=== PATIENT | male | born 1945 | race Caucasian/White ===

== ENCOUNTER 2016-11-12 10:37 | Day surgery (SDC) | payer MEDICARE, OTHER ==
[~2016-11-12] VITALS: Ht 175.3 cm; Wt 58.6 kg
[~2016-11-12 10:37] MED LIST: ASCO500 IV; THYR81.25 PO
[2016-11-12] MEDS ORDERED: SODIUM CHLORIDE 0.9% 1,000 ML IV ONE ×2 (11:16→11:30)
[2016-11-12] MEDS ORDERED: CeFAZolin 1 GM/DEXTROSE 50 ML IV ONE ×2 (11:36→13:00)
[2016-11-12 11:37] LABS: BASOPHILS % (AUTO) 0.6 % (0.0-2.0); EOSINOPHILS % (AUTO) 6.9 % (1.0-6.0); HEMATOCRIT 40.8 % (41-53); HEMOGLOBIN 13.6 g/dL (13.5-17.5); LYMPHOCYTES # (AUTO) 0.9 K/uL (1.0-4.8); LYMPHOCYTES % (AUTO) 21.6 % (22.0-44.0); MEAN CORPUSCULAR HEMOGLOBIN 33.2 pg (26.0-34.0); MEAN CORPUSCULAR HGB CONC 33.4 G/dL (31.0-37.0); MEAN CORPUSCULAR VOLUME 100 fL (80-100); MONOCYTES # (AUTO) 0.4 K/uL (0.1-1.0); MONOCYTES % (AUTO) 9.8 % (2.0-9.0); NEUTROPHILS # (AUTO) 2.5 K/uL (1.8-7.7); NEUTROPHILS % (AUTO) 61.1 % (40.0-70.0); PLATELET COUNT (AUTO) 167 K/uL (150-450); RED BLOOD CELL COUNT(AUTO) 4.09 MIL/uL (4.50-5.90); RED CELL DISTRIBUTION WIDTH 12.9 % (11.5-14.5); WHITE BLOOD COUNT (AUTO) 4.1 K/uL (4.5-11.0)
[2016-11-12] MEDS ORDERED: LORazepam 2 MG/ML VIAL ONE (11:37)
[2016-11-12 11:52] LABS: CREATININE 1.01 mg/dL (0.60-1.30); GLOMERULAR FILTR. RATE CALC > 60 mL/min (>60); UREA NITROGEN, BLOOD 17 mg/dL (7-18)
[2016-11-12] MEDS ORDERED: LORazepam 2 MG/ML VIAL IVP ONE (13:00)
[2016-11-12] MEDS ORDERED: IODIXANOL 320 MG/ML 150 ML VIAL ONE (17:11)
[2016-11-12] MEDS ORDERED: HEPARIN SODIUM 1000 UNITS/NS 500 ML ONE (17:11)
[2016-11-12] MEDS ORDERED: ALTEPLASE 2 MG/VIAL IVP ONE (17:45)
[2016-11-12] MEDS ORDERED: LIDOCAINE HCL/PF 1% 30 ML VIAL INJ ONE (17:50)
[2016-11-12] MEDS ORDERED: MIDAZOLAM HCL 2 MG/2 ML VIAL IVP ONE ×2 (17:50→18:35)
[2016-11-12] MEDS ORDERED: LIDOCAINE HCL/PF 1% 30 ML VIAL ONE (17:50)
[2016-11-12] MEDS ORDERED: FentaNYL CITRATE-PF 100 MCG/2 ML VIAL IVP ONE ×2 (17:50→18:35)
[2016-11-12] MEDS ORDERED: FentaNYL CITRATE-PF 100 MCG/2 ML VIAL ONE ×2 (17:53→18:44)
[2016-11-12] MEDS ORDERED: MIDAZOLAM HCL 2 MG/2 ML VIAL ONE ×2 (17:53→18:45)
[2016-11-12] MEDS ORDERED: PROMETHAZINE HCL 25 MG TABLET PO ONE (19:00)
[2016-11-12] MEDS ORDERED: HYDROmorphone HCL 2 MG TABLET PO ONE (19:00)
[2017-01-15] MEDS ORDERED: SODIUM CHLORIDE 0.9% 1,000 ML IV ONE (08:12)
[2017-01-15] MEDS ORDERED: LORazepam 2 MG/ML VIAL IVP ONE (08:15)
[2017-01-15] MEDS ORDERED: LORazepam 2 MG/ML VIAL IVP PRN (08:15)
[2017-01-15] MEDS ORDERED: CIPROFLOXACIN 400 MG/D5% WATER 200 ML IV ONE (08:30)
== END 2016-11-12 20:05 | disposition home or self-care (01) ==
LOC: SDS 10:37
PROVIDERS: ATTEND Radiology Diagnostic Radiology
DX: D49.0 Neoplasm of unspecified behavior of digestive system (principal); Z90.49 Acquired absence of other specified parts of digestive tract
CPT/HCPCS: 36245; 36246; 36415; 37243; 75726; 75774; 82565; 84520; 85025; 85610; C1892; J0690; J1644; J2060; J2250; J2997; J3010; J3490; J7030; Q9967

== ENCOUNTER 2017-01-18 05:50 | Day surgery (SDC) | payer MEDICARE, OTHER ==
[~2017-01-18] VITALS: Ht 177.8 cm; Wt 62.7 kg
[2017-01-18] MEDS ORDERED: SODIUM CHLORIDE 0.9% 1,000 ML IV ONE ×3 (06:00→10:30)
[2017-01-18 06:36] LABS: BASOPHILS # (AUTO) 0.03 K/uL (0.00-0.20); BASOPHILS % (AUTO) 0.6 % (0.0-2.0); EOSINOPHILS # (AUTO) 0.35 K/uL (0.00-0.70); EOSINOPHILS % (AUTO) 7.41 % (1.0-6.0); HEMATOCRIT 39.8 % (41-53); HEMOGLOBIN 13.5 g/dL (13.5-17.5); LYMPHOCYTES # (AUTO) 1.1 K/uL (1.0-4.8); LYMPHOCYTES % (AUTO) 23.6 % (22.0-44.0); MEAN CORPUSCULAR HEMOGLOBIN 33.2 pg (26.0-34.0); MEAN CORPUSCULAR VOLUME 98 fL (80-100); MONOCYTES # (AUTO) 0.5 K/uL (0.1-1.0); MONOCYTES % (AUTO) 10.8 % (2.0-9.0); NEUTROPHILS # (AUTO) 2.7 K/uL (1.8-7.7); NEUTROPHILS % (AUTO) 57.5 % (40.0-70.0); RED BLOOD CELL COUNT(AUTO) 4.08 MIL/uL (4.50-5.90); RED CELL DISTRIBUTION WIDTH 13.6 % (11.5-14.5); WHITE BLOOD COUNT (AUTO) 4.7 K/uL (4.5-11.0)
[2017-01-18 06:47] LABS: CALCIUM, TOTAL 9.4 mg/dL (8.8-10.5); CREATININE 1.22 mg/dL (0.60-1.30); POTASSIUM 3.8 mmol/L (3.5-5.1)
[2017-01-18 06:52] LABS: ALBUMIN 3.9 g/dL (3.4-5.0); BILIRUBIN,TOTAL 0.5 mg/dL (0.1-1.0); INR 1.1 (0.9-1.1); PLATELET COUNT (AUTO) 136 K/uL (150-450); PROTHROMBIN TIME 11.2 SEC (9.4-11.6); TOTAL PROTEIN, SERUM 7.3 g/dL (6.4-8.2)
[2017-01-18] MEDS ORDERED: LORazepam 2 MG/ML VIAL IVP PRN (07:00)
[2017-01-18] MEDS ORDERED: SODIUM CHLORIDE 0.9% 1,000 ML IV SCH (07:00)
[2017-01-18] MEDS ORDERED: CIPROFLOXACIN 400 MG/D5% WATER 200 ML IV ONE (07:00)
[2017-01-18] MEDS ORDERED: SODIUM CHLORIDE 0.9% 100 ML ONE (07:22)
[2017-01-18] MEDS ORDERED: IOVERSOL 350 MG/ML 150 ML VIAL ONE (07:22)
[2017-01-18] MEDS ORDERED: LIDOCAINE HCL/PF 1% 30 ML VIAL ONE (07:32)
[2017-01-18] MEDS ORDERED: NALOXONE HCL 0.4 MG/ML VIAL ONE (07:32)
[2017-01-18] MEDS ORDERED: FLUMAZENIL 0.1 MG/ML 5 ML VIAL IVP ONE (07:32)
[2017-01-18] MEDS ORDERED: RINGERS SOLUTION,LACTATED 1,000 ML IV ONE (08:36)
[2017-01-18] MEDS ORDERED: OXYGEN THERAPY IH SCH (09:30)
[2017-01-18] MEDS ORDERED: FentaNYL CITRATE-PF 100 MCG/2 ML VIAL IVP PRN (09:30)
[2017-01-18] MEDS ORDERED: MEPERIDINE-PF 25 MG/ML SYRINGE IVP PRN (09:30)
[2017-01-18] MEDS ORDERED: CeFAZolin 1 GM/DEXTROSE 50 ML IV ONE ×2 (10:24→11:00)
[2017-01-18] MEDS ORDERED: MAGNESIUM SULFATE 2 GM, MVI, ADULT NO.1 WITH VIT K 10 ML, THIAMINE HCL 100 MG, FOLIC AC... IV ONE ×5 (10:30)
[2017-01-18] MEDS ORDERED: HYDROmorphone HCL 2 MG TABLET PO ONE (11:00)
[2017-01-18] MEDS ORDERED: HYDR2 PO (11:53)
[2017-01-18] MEDS ORDERED: FentaNYL CITRATE-PF 100 MCG/2 ML VIAL IVP ONE (12:00)
[2017-01-18] MEDS ORDERED: PROPOFOL 1% 20 ML VIAL IVP ONE (12:00)
[2017-01-18] MEDS ORDERED: MIDAZOLAM HCL 2 MG/2 ML VIAL IVP ONE (12:00)
[2017-01-18] MEDS ORDERED: ONDANSETRON HCL 4 MG/2 ML VIAL IVP ONE (12:00)
[2017-01-18] MEDS ORDERED: METOCLOPRAMIDE HCL 5 MG/ML 2 ML VIAL IVP ONE (12:00)
[2017-01-18] MEDS ORDERED: EPHEDrine SULFATE 50 MG/ML VIAL IM ONE (12:00)
[2017-01-18] MEDS ORDERED: KETAMINE HCL 50 MG/ML 10 ML VIAL IVP ONE (12:00)
[2017-01-18] MEDS ORDERED: HYDROmorphone HCL 2 MG TABLET ONE (12:09)
== END 2017-01-18 13:10 | disposition home or self-care (01) ==
LOC: SDS 05:50 → EDSTATUS 07:00 → SDS 13:10
PROVIDERS: ATTEND Radiology Diagnostic Radiology
DX: D49.2 Neoplasm of unspecified behavior of bone, soft tissue, and skin (principal); C20 Malignant neoplasm of rectum; Z98.890 Other specified postprocedural states
CPT/HCPCS: 20983; 36415; 80053; 85025; 85610; C2618; J0690; J0744; J2250; J2405; J2704; J2765; J3010; J3411; J3475; J3490 ×5; J7030; J7050; J7120; Q9967; 76942; J2310